=== PATIENT | female | born 1950 | race Caucasian/White ===

== ENCOUNTER → 2016-09-11 | Outpatient (CLI) | payer OTHER ==
--- NOTE | 2016-09-11 09:08 | EKG ---
[facility] Measurements Intervals [place] Rate: 64 P: -55 CA: 101 QRS: -2 QRSD: 69 T: 5 QT: 401 QTc: 411 Interpretive Statements SINUS RHYTHM WITH SHORT CA INTERVAL ST DEPRESSION, CONSIDER SUBENDOCARDIAL INJURY [0.1+ mV ST DEPRESSION] No previous ECG available for comparison Electronically Signed On 09-11-16 10:39:28 MST by Christopher Arechiga MD [email or web address]
[2016-09-11 14:23] LABS: BASOPHILS # (AUTO) 0.08 10*3/UL; BASOPHILS % (AUTO) 1.4 % (0-1); HEMOGLOBIN 13.5 g/dL (12.0-16.0); IMM GRAN % (AUTO) 0.4 % (0-5); IMM GRAN# (AUTO) 0.02 10*3/UL; LYMPHOCYTES # (AUTO) 0.91 10*3/uL; LYMPHOCYTES % (AUTO) 16.3 % (10-50); MEAN CORPUSCULAR HGB CONC 32.9 g/dL (33-37); MEAN PLATELET VOLUME 10.2 FL (7.4-12.2); MONOCYTES # (AUTO) 0.45 10*3/UL (0.3-0.8); MONOCYTES % (AUTO) 8.1 % (5-15); NEUTROPHILS # (AUTO) 3.96 10*3/UL; NEUTROPHILS % (AUTO) 70.8 % (50-80); RDW COEFFICIENT OF VARIATION 13.6 % (11.5-14.5); RED BLOOD COUNT 4.36 10^6/uL (4.20-5.40); WHITE BLOOD COUNT 5.59 10^3/uL (4.8-10.8)
[2016-09-11 14:36] LABS: PLATELET MORPHOLOGY COMMENT NORMAL MORPHOLOGY (NORM)
[2016-09-11 14:42] LABS: BLOOD UREA NITROGEN 18 mg/dL (7-22); BUN/CREATININE RATIO 25.71 (6-20); CALCIUM 10.1 mg/dL (8.7-10.7); CHLORIDE 104 meq/L (98-112); CREATININE 0.7 mg/dL (0.50-1.20); EST GLOMERULAR FILTRATION > 60 (>60 ml/min/1.73m(2)); GLUCOSE 88 mg/dL (78-110); POTASSIUM 4.5 meq/L (3.8-5.2); SODIUM 139 meq/L (135-145)
== END ==
LOC: EKG 09:10
PROVIDERS: ATTEND Physician Assistant Medical
DX: M17.12 Unilateral primary osteoarthritis, left knee (principal)
CPT/HCPCS: 80048; 85025; 93005; 93010

== ENCOUNTER → 2016-10-19 | Outpatient (CLI) | payer OTHER | LOC: LAB 08:41 | PROVIDERS: ATTEND Physician Assistant Medical | DX: M81.0 Age-related osteoporosis without current pathological fracture (principal) | CPT/HCPCS: 82310 ==

== ENCOUNTER → 2016-10-27 | Outpatient (CLI) | payer OTHER | LOC: MMPC 11:11 | PROVIDERS: ATTEND Internal Medicine | DX: M81.0 Age-related osteoporosis without current pathological fracture (principal) | CPT/HCPCS: G0463; J0897 ==

== ENCOUNTER → 2017-01-20 | Outpatient (CLI) | payer OTHER ==
[2017-01-20 14:34] LABS: BASOPHILS # (AUTO) 0.11 10*3/UL; BASOPHILS % (AUTO) 1.8 % (0-1); EOSINOPHILS % (AUTO) 4.8 % (0-8); HEMATOCRIT 40.5 % (37.0-47.0); HEMOGLOBIN 13.1 g/dL (12.0-16.0); LYMPHOCYTES # (AUTO) 0.84 10*3/uL; MEAN CORPUSCULAR HEMOGLOBIN 29.1 PG (27-31); MEAN CORPUSCULAR HGB CONC 32.3 g/dL (33-37); MEAN PLATELET VOLUME 9.9 FL (7.4-12.2); MONOCYTES # (AUTO) 0.49 10*3/UL (0.3-0.8); MONOCYTES % (AUTO) 7.8 % (5-15)
[2017-01-20 14:40] LABS: BLOOD UREA NITROGEN 16 mg/dL (7-22); CALCIUM 9.6 mg/dL (8.7-10.7); EST GLOMERULAR FILTRATION > 60 (>60 ml/min/1.73m(2)); SERUM ALBUMIN 4.2 g/dL (3.5-4.8)
[2017-01-20 16:02] LABS: PLATELET MORPHOLOGY COMMENT NORMAL MORPHOLOGY (NORM); RBC MORPHOLOGY COMMENT NORMAL MORPHOLOGY (NORM); WBC MORPHOLOGY COMMENT NORMAL MORPHOLOGY (NORM)
== END ==
LOC: LAB 09:03
PROVIDERS: ATTEND Physician Assistant Medical
DX: C15.9 Malignant neoplasm of esophagus, unspecified (principal); F17.200 Nicotine dependence, unspecified, uncomplicated
CPT/HCPCS: 80053; 82378; 83615; 85025

== ENCOUNTER → 2017-01-27 | Outpatient (CLI) | payer OTHER ==
--- NOTE | 2017-01-27 17:15 | DI ---
BILATERAL SCREENING FULL FIELD DIGITAL MAMMOGRAMS, 01/27/2017 2:20 PM: Clinical History: Screening. Family history of breast cancer in her aunt and paternal grandmother. Th e patient has also received chemotherapy and radiation therapy for esophageal cancer. Previous Exam: 02/22/2008; 01/14/2016. Routine mediolateral oblique and craniocaudal views of each breast are obtained. Breast tissue densit y is rated as having scattered areas of fibroglandular breast tissue. There are no masses. There are no abnormal calcifications. Skin contours, nipples, and lower axillary regions are normal. These mamm ograms were evaluated and reviewed with CAD software. Follow Up: 1 year. BIRADS: 1. Negative. Assessment: Negative.
== END ==
LOC: MAMMO 14:17
PROVIDERS: ATTEND Physician Assistant Medical
DX: Z12.31 Encounter for screening mammogram for malignant neoplasm of breast (principal); Z85.01 Personal history of malignant neoplasm of esophagus; Z80.3 Family history of malignant neoplasm of breast; Z92.3 Personal history of irradiation
CPT/HCPCS: G0202